=== PATIENT | female | born 1965 | race Caucasian/White ===

== ENCOUNTER → 2016-09-22 | Outpatient (REF) | payer BC | LOC: M LAB REF 12:06 | PROVIDERS: ATTEND Physician Assistant Medical | DX: J02.9 Acute pharyngitis, unspecified (principal) ==

== ENCOUNTER 2017-04-05 07:57 | Outpatient (CLI) | payer BC ==
[~2017-04-05] VITALS: Ht 167.6 cm; Wt 74.8 kg
[~2017-04-05 07:57] MED LIST: RANI15TA PO
[2017-04-05] MEDS: NS 1,000 ML IV SCH (08:45)
[2017-04-05] MEDS ORDERED: PROPOFOL 200 MG/20 ML VIAL As Ordered ONE ×2 (09:27→09:37)
[2017-04-05] MEDS ORDERED: LIDOCAINE 2% INJ 100 MG/5 ML SDV (FOR ANES.) As Ordered ONE (09:37)
--- NOTE | 2017-04-05 09:45 | ROOR ---
Patient Name: Tessie Herrera Procedure Date: 04/05/2017 9:19 AM Date of : 1965 Age: 51 Room: [facility] Gender: Female Note Status: Finalized Procedure: Colonoscopy Indications: Screening for colorectal malignant neoplasm Providers: Eron RUANO MD Referring MD: SUNI Monzon Requesting Provider: Medicines: Monitored Anesthesia Care Complications: No immediate complications. Procedure: Pre-Anesthesia Assessment: - The heart rate, respiratory rate, oxygen saturations, blood pressure, adequacy of pulmonary ventilation, and response to care were monitored throughout the procedure. The Colonoscope was introduced through the anus and advanced to the terminal ileum, with identification of the appendiceal orifice and IC valve. The colonoscopy was performed without difficulty. The patient tolerated the procedure well. The quality of the bowel preparation was good. Findings: The perianal and digital rectal examinations were normal. (Exam: Complete, Prep: Good or Excellent.) A 10 mm polyp was found in the rectum. The polyp was multi-lobulated. The polyp was removed with a piecemeal technique using a hot snare. Resection and retrieval were complete. Area was successfully injected with 2 mL Kandi ink for tattooing. The exam was otherwise without abnormality on direct and retroflexion views. Impression: - (Exam: Complete, Prep: Good or Excellent.) - One 10 mm flat polyp in the distal rectum (adjacent to a surgical scar), removed piecemeal using a hot snare. Resected and retrieved. Injected. - The examination of the colon and terminal ileum is otherwise normal on direct and retroflexion views. Recommendation: - If the pathology report indicates hyperplastic/granuloma polyp, then repeat colonoscopy for screening purposes in 10 years. - If the pathology report reveals adenomatous tissue, then repeat the colonoscopy to review the polypectomy site in 6 months. Eron Ruano MD Eron RUANO MD 04/05/2017 9:44:57 AM This report has been signed electronically. Number of Addenda: 0 Note Initiated On: 04/05/2017 9:19 AM Estimated Blood Loss: Estimated blood loss: none.
[2017-04-05 10:06] VITALS: BP 130/61
== END 2017-04-05 10:07 | disposition home or self-care (01) ==
LOC: M OPP 07:57
PROVIDERS: ATTEND Internal Medicine Gastroenterology
DX: Z12.11 Encounter for screening for malignant neoplasm of colon (principal); K63.5 Polyp of colon; R12 Heartburn; K21.9 Gastro-esophageal reflux disease without esophagitis; Z79.899 Other long term (current) drug therapy

== ENCOUNTER → 2017-10-19 | Outpatient (CLI) | payer BC ==
[2017-10-19 19:38] LABS: ERYTHROCYTE SEDIMENTATION RATE 9 mm/hr (0-30)
[2017-10-19 19:42] LABS: C REACTIVE PROTEIN QUANTITATIV 1.33 MG/DL (0.00-0.30); FREE T4 0.99 NG/DL (0.76-1.46); RHEUMATOID FACTOR QUANT < 10.0 IU/ML (<15.0)
[2017-10-22 00:07] LABS: CYCLIC CITRULLINATED PEPTIDE 3 units (0-19)
[2017-10-22 00:07] LABS: ANTINUCLEAR ANTIBODIES DIRECT Negative (Negative); Lyme Disease IgG/IgM Antibodie <0.91 ISR (0.00-0.90); Lyme Disease IgM Ab Quantitati <0.80 index (0.00-0.79)
== END ==
LOC: M SMT 11:53
DX: M25.551 Pain in right hip (principal)
CPT/HCPCS: 84443

== ENCOUNTER → 2020-05-27 | Outpatient (CLI) | payer BC ==
--- NOTE | 2020-05-27 09:26 | REP ---
INDICATION: PVD COMPARISON: None. TECHNIQUE: Tompkins scale and color Doppler evaluation of the bilateral lower extremities using linear high frequency transducer along with reflux evaluation. FINDINGS: Ultrasound examination of the right and left lower extremity deep venous structures from the common femoral vein to the popliteal vein demonstrates normal compressibility flow and wave patterns in response to respiration and augmentation. There is no evidence for deep venous thrombosis. Incidental duplicated right mid superficial femoral vein and right Artis's cyst measuring 5.3 x 1.5 x 4.4 cm. Left lower extremity demonstrates no significant reflux. Right lower extremity demonstrates reflux through the greater saphenous vein. Proximal saphenous vein measures 8.1 mm diameter with reflux duration 4.5 seconds, mid saphenous vein measures 6.8 mm diameter with reflux duration 5.7 seconds, and distal greater saphenous vein measures 6.8 mm diameter with reflux duration 7.4 seconds. The greater saphenous vein also demonstrates tortuosity at the level of the knee with superficial collateral vessels extending into the calf. Reflux also identified through the common femoral vein and proximal superficial femoral vein. IMPRESSION: 1. No evidence for deep venous thrombosis. 2. Reflux through the right greater saphenous vein and right common femoral vein/proximal superficial femoral vein. 3. Artis's cyst in the right popliteal fossa. <Electronically signed by Benjamin Styles > 05/27/20 0909
== END ==
LOC: M RAD 07:57
PROVIDERS: ATTEND Physician Assistant
DX: I73.9 Peripheral vascular disease, unspecified (principal)

== ENCOUNTER → 2020-08-17 | Outpatient (CLI) | payer BC ==
[~2020-08-17] MED LIST changes: +EQL50TAB2 PO; +FISH1000 PO
== END ==
LOC: M LABSMTC 08:07
PROVIDERS: ATTEND Anesthesiology
DX: Z01.818 Encounter for other preprocedural examination (principal); Z11.52 Encounter for screening for COVID-19

== ENCOUNTER → 2020-08-20 | Outpatient (CLI) | payer BC ==
[~2020-08-20] MED LIST changes: +OXYC1TAB23 PO
--- NOTE | 2020-08-22 00:35 | ECGEPIP ---
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
== END ==
LOC: M EKG 09:56
PROVIDERS: ATTEND Anesthesiology
DX: Z01.818 Encounter for other preprocedural examination (principal); K21.9 Gastro-esophageal reflux disease without esophagitis

== ENCOUNTER 2020-08-22 06:18 | Day surgery (SDC) | payer BC ==
[~2020-08-22] VITALS: Ht 167.6 cm; Wt 79.7 kg
[~2020-08-22 06:18] MED LIST changes: -OXYC1TAB23 PO
[2020-08-22] MEDS ORDERED: ceFAZolin SOD 2 GM in IV 1 EA IV ONE (06:30)
[2020-08-22] MEDS ORDERED: LR 1,000 ML IV ONE (06:30)
[2020-08-22] MEDS ORDERED: LIDOCAINE W/EPINEPHRINE 1% 20ML VIAL As Ordered ONE (07:15)
[2020-08-22] MEDS ORDERED: HEPARIN SOD (PORCINE) 5000UNITS/ML 1ML VIAL/SYRINGE As Ordered ONE (07:15)
[2020-08-22] MEDS ORDERED: MIDAZOLAM INJ 2MG/2ML VIAL (J2250 PER 1MG) As Ordered ONE (07:39)
[2020-08-22] MEDS ORDERED: ONDANSETRON 4MG/2ML VIAL As Ordered ONE (07:39)
[2020-08-22] MEDS ORDERED: LIDOCAINE 2% 100MG/5ML SDV (FOR ANES.) As Ordered ONE (07:39)
[2020-08-22] MEDS ORDERED: fentaNYL 100 MCG/2 ML INJECTION (J3010) As Ordered ONE ×2 (07:39→09:00)
[2020-08-22] MEDS ORDERED: dexameTHASONE 4 MG/ML 1ML VIAL (J1100 PER 1MG) As Ordered ONE (07:39)
[2020-08-22] MEDS ORDERED: propofoL 200 MG/20 ML VIAL As Ordered ONE (07:39)
[2020-08-22] MEDS ORDERED: ACETAMINOPHEN 1000MG 100ML IV BTL (OFIRMEV) (J0131 PER 10MG) As Ordered ONE (07:42)
[2020-08-22] MEDS: LIDOCAINE 1% MDV 20ML VIAL As Ordered ONE ×2 (07:55→08:15)
[2020-08-22] MEDS ORDERED: OXYC1TAB23 PO (08:50)
[2020-08-22] MEDS ORDERED: ONDANSETRON 4MG/2ML VIAL IV PRN (09:00)
[2020-08-22] MEDS ORDERED: LR 1,000 ML IV SCH (09:00)
[2020-08-22] MEDS ORDERED: fentaNYL 100 MCG/2 ML INJECTION (J3010) IV PRN (09:00)
--- NOTE | 2020-08-22 09:02 | ROOPDOC ---
[facility] Report Of Operation Report of Operation DATE OF PROCEDURE: 08/22/20 PREPROCEDURE DIAGNOSES: Venous insufficiency right lower extremity with pain, swelling, varicose veins, and skin changes POSTPROCEDURE DIAGNOSES: Same PROCEDURE: 1. Ultrasound-guided access right greater saphenous vein 2. Radiofrequency ablation distal right greater saphenous vein with connection to right anterior saphenous vein SURGEON: Laisha Isabel MD ANESTHESIA: LMA anesthesia and local INDICATION FOR PROCEDURE: This is a very pleasant 55-year-old patient with symptomatic venous insufficiency, CEAP classification is C4 Ep As,d Pr. She has significant right lower extremity swelling, brawny skin changes proximal to the medial malleolus, pain in the leg, and varicosities. Risks benefits and alternatives to a right greater saphenous vein radiofrequency ablation were e xplained to the patient. She is agreeable to proceed. Informed consent was obtained. REPORT OF OPERATION: The patient was brought to the operating room in stable condition. Anesthesia and antibiotics were administered without complication. Her right lower extremity was prepped and draped in a sterile fashion. A timeout was performed. Local anesthesia was administered to the skin and subcutaneous tissue over the greater saphenous vein just below the knee. Upon examination of the greater saphenous vein with ultrasound, it was found to be relatively superficial at and above the knee, then tapered off and occluded in the mid thigh. However, the vein was large at an above the knee, and had a large connection to the anterior saphenous vein in the mid thigh. The anterior saphenous vein is a very large and has significant reflux. We were able to access the greater saphenous vein just below the knee with a microneedle under ultrasound guidance. A wire was passed through this access and a 7 Welsh sheath was placed and flushed with saline. With ultrasound at the junction of the common femoral vein and anterior saphenous vein, there were visible bubble seen with injection of saline through the sheath, confirming connection between the two. We then advanced 018 Glidewire advantage up to the connection through the greater saphenous vein or ultrasound guidance, carefully navigated it through the connection into the anterior saphenous vein. The ablation catheter was then advanced over the wire using a Seldinger technique under ultrasound guidance until the tip was at the anterior saphenous femoral junction. Ultrasound confirmed placement of the tip at 2 cm from the junction. Tumescence was injected under ultrasound guidance circumferentially along the vein. And from the catheter was still 2 cm from the junction after tumescence. We then compressed the vein with ultrasound and 2 ablations were performed proximally. We then sequentially retracted the catheter and ablations were performed along the length of the anterior saphenous vein, across the communication, and then 10 second ablations were performed in the more superficial greater saphenous vein above the knee. A total of 8 ablation cycles were performed. We then removed the catheter and the sheath below the knee, and pressure was held for 5 minutes for good hemostasis. Steri-Strips were placed over the tumescence injection sites and the access site below the knee. 4 x 4's Kerlix were used to dress the leg and then a 4 inch Gianfranco wrap was placed from the foot to the groin. The patient was allowed to awaken from anesthesia and was taken to recovery in stable condition. She tolerated the procedure and the anesthesia well. ESTIMATED BLOOD LOSS: Approximately 2 mL. COMPLICATIONS: None. PLAN: Okay to resume home diet and medications. Okay to shower tomorrow with dressings off. The Steri-Strips intact 3 days. Rewrapped leg with Gianfranco wrap following shower. Elevate legs when at rest. No strenuous exercise for 1 week. We will see the patient back for her appointment next week for ultrasound to ensure there is no propagation of thrombus near the common femoral vein, and to check her right lower extremity. We appreciate the opportunity to participate in the care of this patient. LAISHA ISABEL MD Aug 22, 2020 09:02
[2020-08-22] MEDS: oxyCODONE 5MG TAB PO PRN ×2 (09:15→09:49)
--- NOTE | 2020-08-22 11:23 | REP ---
INDICATION: RIGHT, GREATER SAPHENOUS VEIN, R-F TISSUE ABLATION. COMPARISON: None. TECHNIQUE: Ultrasound guidance. FINDINGS: Sonographic guidance is provided to Dr. Allen to performed radiofrequency ablation procedure. IMPRESSION: Ultrasound guidance. <Electronically signed by Aryan Olguin > 08/22/20 1114
[2020-08-22 11:26] VITALS: BP 117/76
== END 2020-08-22 11:30 | disposition home or self-care (01) ==
LOC: M SDC 06:18
PROVIDERS: ATTEND Surgery Vascular Surgery
DX: I87.2 Venous insufficiency (chronic) (peripheral) (principal); I83.811 Varicose veins of right lower extremity with pain; R12 Heartburn; G43.909 Migraine, unspecified, not intractable, without status migrainosus; Z98.51 Tubal ligation status
CPT/HCPCS: 36475; 76940; C1729; C1769; J0131; J0690; J1100; J1644; J2250; J2405; J3010

== ENCOUNTER → 2020-08-25 | Outpatient (CLI) | payer BC ==
[~2020-08-25] MED LIST changes: +OXYC1TAB23 PO
--- NOTE | 2020-08-25 11:58 | REP ---
INDICATION: F/U S/P ABLATION COMPARISON: 05/27/2020. TECHNIQUE: Real time compression and duplex Doppler interrogation of the right lower extremity deep venous system is performed. FINDINGS: The right common femoral, superficial femoral and popliteal veins are fully compressible with transducer pressure and demonstrate normal spontaneous and phasic flow, without evidence of deep venous thrombosis. Anterior accessory greater saphenous vein demonstrates diffuse occlusive thrombus. The superior extent is 3 mm from the saphenofemoral junction. IMPRESSION: No evidence of deep venous thrombosis of the right lower extremity femoral popliteal venous system. Anterior accessory greater saphenous vein demonstrates diffuse occlusive thrombus. The superior extent is 3 mm from the saphenofemoral junction. <Electronically signed by Peng Tompkins > 08/25/20 1153
== END ==
LOC: M RAD 09:51
PROVIDERS: ATTEND Surgery Vascular Surgery
DX: I83.811 Varicose veins of right lower extremity with pain (principal)

== ENCOUNTER → 2020-09-22 | Outpatient (CLI) | payer BC ==
--- NOTE | 2020-09-22 10:38 | REP ---
INDICATION: EVAL FOR DVT COMPARISON: None. TECHNIQUE: Tompkins scale and color Doppler evaluation using linear high frequency transducer. FINDINGS: Ultrasound examination of the right lower extremity deep venous structures from the common femoral vein to the popliteal vein demonstrates normal compressibility flow and wave patterns in response to respiration and augmentation. There is no evidence for deep venous thrombosis. Thrombus in the greater saphenous vein begins approximately 2 cm from the saphenofemoral junction and is consistent with prior ablation. IMPRESSION: No evidence for deep venous thrombosis. <Electronically signed by Benjamin Styles > 09/22/20 1037
== END ==
LOC: M RAD 09:44
PROVIDERS: ATTEND Physician Assistant
DX: I83.811 Varicose veins of right lower extremity with pain (principal); I87.2 Venous insufficiency (chronic) (peripheral)

== ENCOUNTER → 2021-04-01 | Outpatient (REF) | payer BC ==
[2021-04-01 13:17] LABS: BASO # 0.1 10^3/uL (0.0-0.2); BASO % 1.8 % (0.0-1.0); EOS # 0.5 10^3/uL (0.0-0.5); EOS % 6.5 % (0.0-3.0); HEMATOCRIT 46.1 % (36.0-47.0); HEMOGLOBIN 15.2 g/dl (12.0-15.5); LYMPH # 1.7 10^3/uL (1.5-5.0); LYMPH % 22.9 % (24.0-44.0); MEAN CORPUSCULAR HEMOGLOBIN 30.2 pg (27.0-33.0); MEAN CORPUSCULAR VOLUME 91.7 fl (80.0-96.0); MONO # 0.7 10^3/uL (0.0-0.8); MONO % 9.8 % (2.0-8.0); NEUTROPHILS # 4.3 10^3/uL (1.5-8.5); NEUTROPHILS % 58.7 % (36.0-66.0); PLATELET COUNT, AUTOMATED 217 10^3/uL (150-450); RED BLOOD COUNT 5.03 10^6/uL (4.00-5.40); WHITE BLOOD COUNT 7.3 10^3/uL (4.0-10.0)
[2021-04-01 14:36] LABS: ALBUMIN 3.8 GM/DL (3.2-5.2); ALT/SGPT 83 U/L (12-78); BILIRUBIN,TOTAL 0.5 MG/DL (0.2-1.0); BLOOD UREA NITROGEN 13 MG/DL (7-18); CALCIUM LEVEL 9.6 MG/DL (8.5-10.1); CARBON DIOXIDE LEVEL 29 MEQ/L (21-32); CHLORIDE LEVEL 108 MEQ/L (98-107); CHOLESTEROL LEVEL 201 MG/DL (<200); CHOLESTEROL RISK RATIO 3.406 (<5); CREATININE FOR GFR 0.73 MG/DL (0.55-1.30); FREE T4 1.03 NG/DL (0.76-1.46); GLOMERULAR FILTRATION RATE > 60.0 (>51); GLUCOSE, FASTING 112 MG/DL (70-100); HDL CHOLESTEROL 59 MG/DL (>40); LDL CHOLESTEROL 117 MG/DL (<100); NON-HDL-C 142 MG/DL; POTASSIUM SERUM 4.3 MEQ/L (3.5-5.1); SODIUM LEVEL 142 MEQ/L (136-145); TOTAL PROTEIN 7.2 GM/DL (6.4-8.2); TRIGLYCERIDES LEVEL 127 MG/DL (<150)
[2021-04-01 14:37] LABS: TOTAL 25(OH) VITAMIN D 25.8 NG/ML (30.0-100.0)
[2021-04-02 09:46] LABS: HEMOGLOBIN A1c 5.7 %
== END ==
LOC: M LABDRWAD 12:37
PROVIDERS: ATTEND Family Medicine
DX: Z13.0 Encounter for screening for diseases of the blood and blood-forming organs and certain disorders involving the immune mechanism (principal); Z13.29 Encounter for screening for other suspected endocrine disorder; Z13.220 Encounter for screening for lipoid disorders; E55.9 Vitamin D deficiency, unspecified; Z00.01 Encounter for general adult medical examination with abnormal findings; R73.01 Impaired fasting glucose

== ENCOUNTER → 2022-04-21 | Outpatient (CLI) | payer BC | LOC: M PLAIMG 12:07 | PROVIDERS: ATTEND Family Medicine | DX: J18.9 Pneumonia, unspecified organism (principal) ==

== ENCOUNTER → 2022-10-04 | Outpatient (CLI) | payer BC | LOC: M RAD 09:55 | PROVIDERS: ATTEND Family Medicine | DX: R07.9 Chest pain, unspecified (principal) ==

== ENCOUNTER → 2022-10-05 | Outpatient (CLI) | payer BC ==
[2022-10-05 14:26] LABS: ALBUMIN 3.8 G/DL (3.2-5.2); ALKALINE PHOSPHATASE 81 U/L (46-116); ALT/SGPT 78 U/L (7.0-40); AST/SGOT 46 U/L (<34); BILIRUBIN,TOTAL 0.8 MG/DL (0.3-1.2); BLOOD UREA NITROGEN 9 MG/DL (9-23); CALCIUM LEVEL 8.9 MG/DL (8.5-10.1); CARBON DIOXIDE LEVEL 29 MMOL/L (20-31); CHLORIDE LEVEL 105 MMOL/L (98-107); CHOLESTEROL LEVEL 185 MG/DL (<200); CHOLESTEROL RISK RATIO 3.67 (<5); CREATININE FOR GFR 0.72 MG/DL (0.55-1.30); GLOMERULAR FILTRATION RATE > 60.0 (>51); GLUCOSE, FASTING 119 MG/DL (60-100); HDL CHOLESTEROL 50.3 MG/DL (>40); LDL CHOLESTEROL 107.9 MG/DL (<100); NON-HDL-C 134.7 MG/DL; POTASSIUM SERUM 4.2 MMOL/L (3.5-5.1); SODIUM LEVEL 138 MMOL/L (136-145); THYROID STIMULATING HORMONE 3.094 uIU/ML (0.55-4.78); TOTAL 25(OH) VITAMIN D 25.1 NG/ML (20.0-100.0); TOTAL PROTEIN 6.6 G/DL (5.7-8.2); TRIGLYCERIDES LEVEL 134 MG/DL (<150)
[2022-10-05 14:27] LABS: BASO # 0.1 10^3/uL (0.0-0.2); BASO % 1.4 % (0.0-1.0); EOS # 0.2 10^3/uL (0.0-0.5); EOS % 3.4 % (0.0-3.0); HEMATOCRIT 47.6 % (36.0-47.0); HEMOGLOBIN 15.4 g/dl (12.0-15.5); LYMPH # 1.8 10^3/uL (1.5-5.0); LYMPH % 26.1 % (24.0-44.0); MEAN CORPUSCULAR HEMOGLOBIN 30.1 pg (27.0-33.0); MEAN CORPUSCULAR HGB CONC 32.4 g/dl (32.0-36.5); MONO # 0.6 10^3/uL (0.0-0.8); MONO % 8.5 % (2.0-8.0); NEUTROPHILS # 4.2 10^3/uL (1.5-8.5); NEUTROPHILS % 60.2 % (36.0-66.0); PLATELET COUNT, AUTOMATED 188 10^3/uL (150-450); RED BLOOD COUNT 5.12 10^6/uL (4.00-5.40); WHITE BLOOD COUNT 7.1 10^3/uL (4.0-10.0)
[2022-10-05 14:28] LABS: FREE T4 1.12 NG/DL (0.89-1.76)
[2022-10-06 10:26] LABS: HEMOGLOBIN A1c 6.2 % (4.0-6.0)
== END ==
LOC: M LABDRWAD 07:45
PROVIDERS: ATTEND Family Medicine
DX: R73.01 Impaired fasting glucose (principal); E55.9 Vitamin D deficiency, unspecified; Z13.29 Encounter for screening for other suspected endocrine disorder; Z13.0 Encounter for screening for diseases of the blood and blood-forming organs and certain disorders involving the immune mechanism; Z13.220 Encounter for screening for lipoid disorders

== ENCOUNTER → 2022-10-28 | Outpatient (REF) | payer BC ==
[2022-10-28 14:51] LABS: HEPATITIS B CORE ANTIBODY IGM NEGATIVE (NEGATIVE)
[2022-10-29 21:07] LABS: TISSUE TRANSGLUTAMINASE IgA <2 U/mL (0-3); TISSUE TRANSGLUTAMINASE IgG <2 U/mL (0-5); UNITSIGA FOR GLIADIN IGA 5 units (0-19); UNITSIGG FOR GLIADIN IGG 3 units (0-19)
== END ==
LOC: M LABDRWAD 13:19
PROVIDERS: ATTEND Family Medicine
DX: R74.01 Elevation of levels of liver transaminase levels (principal)

== ENCOUNTER → 2022-11-15 | Outpatient (CLI) | payer BC | LOC: M WHC 07:33 | PROVIDERS: ATTEND Family Medicine | DX: R74.01 Elevation of levels of liver transaminase levels (principal); K76.0 Fatty (change of) liver, not elsewhere classified; R16.0 Hepatomegaly, not elsewhere classified ==

== ENCOUNTER → 2023-01-11 | Outpatient (REF) | payer BC ==
[2023-01-11 13:07] LABS: BASO # 0.1 10^3/uL (0.0-0.2); BASO % 1.4 % (0.0-1.0); EOS # 0.2 10^3/uL (0.0-0.5); EOS % 3.8 % (0.0-3.0); HEMATOCRIT 44.8 % (36.0-47.0); HEMOGLOBIN 14.3 g/dl (12.0-15.5); LYMPH # 1.5 10^3/uL (1.5-5.0); LYMPH % 24.3 % (24.0-44.0); MEAN CORPUSCULAR HEMOGLOBIN 29.8 pg (27.0-33.0); MEAN CORPUSCULAR HGB CONC 31.9 g/dl (32.0-36.5); MEAN CORPUSCULAR VOLUME 93.3 fl (80.0-96.0); MONO # 0.6 10^3/uL (0.0-0.8); MONO % 9.9 % (2.0-8.0); NEUTROPHILS # 3.8 10^3/uL (1.5-8.5); NEUTROPHILS % 60.1 % (36.0-66.0); PLATELET COUNT, AUTOMATED 162 10^3/uL (150-450); WHITE BLOOD COUNT 6.4 10^3/uL (4.0-10.0)
[2023-01-11 13:22] LABS: HEMOGLOBIN A1c 5.7 % (4.0-6.0)
[2023-01-11 13:26] LABS: ALBUMIN 3.6 G/DL (3.2-5.2); ALKALINE PHOSPHATASE 78 U/L (46-116); ALT/SGPT 60 U/L (7.0-40); AST/SGOT 30 U/L (<34); BILIRUBIN,TOTAL 0.6 MG/DL (0.3-1.2); BLOOD UREA NITROGEN 7 MG/DL (9-23); CALCIUM LEVEL 8.6 MG/DL (8.5-10.1); CARBON DIOXIDE LEVEL 28 MMOL/L (20-31); CHLORIDE LEVEL 105 MMOL/L (98-107); CHOLESTEROL LEVEL 163 MG/DL (<200); CREATININE FOR GFR 0.62 MG/DL (0.55-1.30); GLOMERULAR FILTRATION RATE > 60.0 (>51); GLUCOSE, FASTING 132 MG/DL (60-100); HDL CHOLESTEROL 54.2 MG/DL (>40); LDL CHOLESTEROL 85.6 MG/DL (<100); NON-HDL-C 108.8 MG/DL; SODIUM LEVEL 142 MMOL/L (136-145); TOTAL PROTEIN 6.3 G/DL (5.7-8.2); TRIGLYCERIDES LEVEL 116 MG/DL (<150)
[2023-01-11 13:29] LABS: TOTAL 25(OH) VITAMIN D 31.5 NG/ML (20.0-100.0)
[2023-01-11 13:30] LABS: THYROID STIMULATING HORMONE 3.959 uIU/ML (0.55-4.78)
[2023-01-11 13:31] LABS: FREE T4 1.07 NG/DL (0.89-1.76)
== END ==
LOC: M LABDRWAD 12:22
PROVIDERS: ATTEND Family Medicine
DX: Z13.29 Encounter for screening for other suspected endocrine disorder (principal); Z13.220 Encounter for screening for lipoid disorders; Z13.0 Encounter for screening for diseases of the blood and blood-forming organs and certain disorders involving the immune mechanism; R73.01 Impaired fasting glucose; E55.9 Vitamin D deficiency, unspecified

== ENCOUNTER → 2024-01-16 | Outpatient (CLI) | payer BC ==
[2024-01-16 12:38] LABS: BASO # 0.1 10^3/uL (0.0-0.2); BASO % 1.5 % (0.0-1.0); EOS # 0.3 10^3/uL (0.0-0.5); EOS % 4.1 % (0.0-3.0); HEMATOCRIT 45.2 % (36.0-47.0); LYMPH # 1.7 10^3/uL (1.5-5.0); LYMPH % 26.4 % (24.0-44.0); MEAN CORPUSCULAR HEMOGLOBIN 30.7 pg (27.0-33.0); MEAN CORPUSCULAR HGB CONC 33.2 g/dl (32.0-36.5); MEAN CORPUSCULAR VOLUME 92.4 fl (80.0-96.0); MONO # 0.6 10^3/uL (0.0-0.8); MONO % 9.7 % (2.0-8.0); NEUTROPHILS # 3.8 10^3/uL (1.5-8.5); PLATELET COUNT, AUTOMATED 181 10^3/uL (150-450); RED BLOOD COUNT 4.89 10^6/uL (4.00-5.40); WHITE BLOOD COUNT 6.5 10^3/uL (4.0-10.0)
[2024-01-16 12:57] LABS: ALBUMIN 3.6 G/DL (3.2-5.2); ALKALINE PHOSPHATASE 79 U/L (46-116); ALT/SGPT 53 U/L (7.0-40); AST/SGOT 22 U/L (<34); BILIRUBIN,TOTAL 0.8 MG/DL (0.3-1.2); BLOOD UREA NITROGEN 11 MG/DL (9-23); CALCIUM LEVEL 8.9 MG/DL (8.5-10.1); CARBON DIOXIDE LEVEL 29 MMOL/L (20-31); CHLORIDE LEVEL 106 MMOL/L (98-107); CREATININE FOR GFR 0.63 MG/DL (0.55-1.30); GLOMERULAR FILTRATION RATE > 60.0 (>51); GLUCOSE, FASTING 118 MG/DL (60-100); POTASSIUM SERUM 3.8 MMOL/L (3.5-5.1); SODIUM LEVEL 141 MMOL/L (136-145); TOTAL PROTEIN 6.5 G/DL (5.7-8.2)
[2024-01-16 13:35] LABS: HEMOGLOBIN A1c 5.7 % (4.0-6.0)
== END ==
LOC: M WUC 08:37
PROVIDERS: ATTEND Nurse Practitioner Adult Health
DX: R73.01 Impaired fasting glucose (principal)

== ENCOUNTER → 2024-03-28 | Outpatient (CLI) | payer BC | LOC: M WUC 11:14 | PROVIDERS: ATTEND Nurse Practitioner Adult Health | DX: M25.562 Pain in left knee (principal) ==

== ENCOUNTER → 2024-07-09 | Outpatient (CLI) | payer BC ==
[2024-07-09 17:18] LABS: BASO # 0.1 10^3/uL (0.0-0.2); BASO % 1.2 % (0.0-1.0); EOS # 0.2 10^3/uL (0.0-0.5); EOS % 3.1 % (0.0-3.0); HEMATOCRIT 48.7 % (36.0-47.0); LYMPH # 1.8 10^3/uL (1.5-5.0); LYMPH % 26.7 % (24.0-44.0); MEAN CORPUSCULAR HEMOGLOBIN 30.2 pg (27.0-33.0); MEAN CORPUSCULAR HGB CONC 32.9 g/dl (32.0-36.5); MEAN CORPUSCULAR VOLUME 92.1 fl (80.0-96.0); MONO # 0.5 10^3/uL (0.0-0.8); NEUTROPHILS # 4.2 10^3/uL (1.5-8.5); NEUTROPHILS % 61.6 % (36.0-66.0); PLATELET COUNT, AUTOMATED 170 10^3/uL (150-450); RED BLOOD COUNT 5.29 10^6/uL (4.00-5.40); WHITE BLOOD COUNT 6.9 10^3/uL (4.0-10.0)
[2024-07-09 17:33] LABS: HEMOGLOBIN A1c 5.8 % (4.0-6.0)
[2024-07-09 17:41] LABS: ALKALINE PHOSPHATASE 83 U/L (35-104); ALT/SGPT 85 U/L (7.0-40); AST/SGOT 48 U/L (<34); BILIRUBIN,TOTAL 0.8 MG/DL (0.3-1.2); BLOOD UREA NITROGEN 13 MG/DL (9-23); CARBON DIOXIDE LEVEL 27 MMOL/L (20-31); CHLORIDE LEVEL 104 MMOL/L (98-107); CHOLESTEROL LEVEL 178 MG/DL (<200); CHOLESTEROL RISK RATIO 3.61 (<5); CREATININE FOR GFR 0.63 MG/DL (0.55-1.30); GLOMERULAR FILTRATION RATE > 60.0 (>51); GLUCOSE, FASTING 105 MG/DL (60-100); HDL CHOLESTEROL 49.3 MG/DL (>40); LDL CHOLESTEROL 107.5 MG/DL (<100); NON-HDL-C 128.7 MG/DL; POTASSIUM SERUM 3.9 MMOL/L (3.5-5.1); SODIUM LEVEL 140 MMOL/L (136-145); TOTAL PROTEIN 7.5 G/DL (5.7-8.2); TRIGLYCERIDES LEVEL 106 MG/DL (<150)
[2024-07-09 17:45] LABS: FREE T4 1.34 NG/DL (0.89-1.76); THYROID STIMULATING HORMONE 2.347 uIU/ML (0.55-4.78); TOTAL 25(OH) VITAMIN D 26.6 NG/ML (20.0-100.0)
== END ==
LOC: M WUC 10:46
PROVIDERS: ATTEND Nurse Practitioner Adult Health
DX: R73.01 Impaired fasting glucose (principal); E55.9 Vitamin D deficiency, unspecified; K76.0 Fatty (change of) liver, not elsewhere classified

== ENCOUNTER → 2025-01-29 | Outpatient (REF) | payer BC ==
[~2025-01-29] MED LIST changes: -EQL50TAB2 PO; +VITA1TAB82 PO
[2025-01-29 13:46] LABS: BASO # 0.1 10^3/uL (0.0-0.2); BASO % 1.8 % (0.0-1.0); EOS # 0.2 10^3/uL (0.0-0.5); EOS % 2.7 % (0.0-3.0); LYMPH # 1.7 10^3/uL (1.5-5.0); LYMPH % 26.6 % (24.0-44.0); MONO # 0.6 10^3/uL (0.0-0.8); MONO % 9.6 % (2.0-8.0); NEUTROPHILS # 3.7 10^3/uL (1.5-8.5); NEUTROPHILS % 58.8 % (36.0-66.0); PLATELET COUNT, AUTOMATED 225 10^3/uL (150-450)
[2025-01-29 14:04] LABS: ESTIMATED AVERAGE GLUCOSE 114.0 MG/DL (60-110)
[2025-01-29 14:13] LABS: ALT/SGPT 46 U/L (7.0-40); AST/SGOT 34 U/L (<34); CALCIUM LEVEL 9.0 MG/DL (8.5-10.1); CARBON DIOXIDE LEVEL 29 MMOL/L (20-31); CHLORIDE LEVEL 103 MMOL/L (98-107); CHOLESTEROL LEVEL 184 MG/DL (<200); CHOLESTEROL RISK RATIO 2.64 (<5); CREATININE FOR GFR 0.65 MG/DL (0.55-1.30); GLOMERULAR FILTRATION RATE > 90.0 (>51); LDL CHOLESTEROL 98.9 MG/DL (<100); NON-HDL-C 114.5 MG/DL; POTASSIUM SERUM 4.1 MMOL/L (3.5-5.1); SODIUM LEVEL 142 MMOL/L (136-145); TRIGLYCERIDES LEVEL 78 MG/DL (<150)
== END ==
LOC: M LABDRWAD 12:52
PROVIDERS: ATTEND Nurse Practitioner Adult Health
DX: R73.01 Impaired fasting glucose (principal); E66.9 Obesity, unspecified